=== PATIENT | female | born 1985 ===

== ENCOUNTER 2019-11-18 23:55 | Emergency (ER) | payer SELFPAY ==
[2019-11-19] MEDS ORDERED: SODIUM CHLORIDE 0.9% 1000 ML 1,000 ML ONE (00:22)
[2019-11-19] MEDS ORDERED: SODIUM CHLORIDE 0.9% 1000 ML 1,000 ML IV ONE ×4 (00:25→02:26)
--- NOTE | 2019-11-19 00:35 | Emergency Department Report ---
History of Present Illness - General Chief Complaint: Medical Clearance Stated Complaint: POSS OD Time Seen by Provider: 11/19/19 00:25 Source: patient, EMS Mode of arrival: Stretcher Limitations: Physical Limitation - History of Present Illness Initial Comments: This is a 34-year-old female who presents after potential overdose. For the past 4 days she has been treated for alcohol dependence at [facility]. According to documentation, patient was found with unknown pink powder substance. Patient reported that she took 7 to 8 pills of Benadryl today for anxiety to the staff at [facility] according to documentation. She presumably had anxiety because she did not know where she would reside after being discharged from the facility. Currently she feels sleepy. Patient denies intentional overdose. She denies attempt to harm herself. Patient was brought to the emergency department on 2013 involuntary hold for sev ere alcohol intoxication causing potential harm/trauma to patient with multiple falls. Sitter is at the bedside. MD Complaint: intentional overdose -: This evening Intent: other (According to documentation anxiety regarding living situation) How Overdose Was Discovered: other (Patient is being treated at [facility]) Context: Intentional Overdose: financial issues, drug/ETOH problems, started new med recently Associated Symptoms: depression Treatments Prior to Arrival: none - Related Data Allergies Allergy/AdvReac Type Severity Reaction Status Date / Time divalproex sodium Allergy Unknown Verified 11/19/19 00:17 [From [facility]] ED Review of Systems ROS: Stated complaint: POSS OD Other details as noted in HPI Comment: All other systems reviewed and negative Constitutional: denies: fever, malaise Respiratory: denies: cough, shortness of breath Cardiovascular: denies: palpitations Gastrointestinal: denies: abdominal pain, nausea, vomiting ED Past Medical Hx - Past Medical History Previous Medical History?: No - Surgical History Past Surgical History?: No - Social History Smoking Status: Former Smoker Substance Use Type: Alcohol ED Physical Exam - General Limitations: Physical Limitation General appearance: alert, in no apparent distress - Head Head exam: Present: atraumatic, normocephalic - Eye Eye exam: Present: normal appearance - ENT ENT exam: Present: mucous membranes moist - Neck Neck exam: Present: normal inspection, full ROM - Respiratory Respiratory exam: Present: normal lung sounds bilaterally. Absent: respiratory distress, wheezes, rales, rhonchi - Cardiovascular Cardiovascular Exam: Present: regular rate, normal rhythm, normal heart sounds. Absent: systolic murmur, diastolic murmur, rubs, gallop - GI/Abdominal GI/Abdominal exam: Present: soft, normal bowel sounds. Absent: distended, tenderness, guarding, rebound - Extremities Exam Extremities exam: Present: normal inspection - Neurological Exam Neurological exam: Present: alert, oriented X3 - Psychiatric Psychiatric exam: Present: depressed, flat affect - Skin Skin exam: Present: warm, dry, intact, normal color. Absent: rash ED Course Vital Signs 11/19/19 11/19/19 11/19/19 00:15 00:16 00:30 Temperature 98.1 F Pulse Rate 66 Respiratory 16 Rate Blood Pressure 80/45 71/45 Blood Pressure 75/43 [Left] O2 Sat by Pulse 96 93 100 Oximetry 11/19/19 11/19/19 11/19/19 00:45 01:00 01:15 Temperature Pulse Rate Respiratory Rate Blood Pressure 82/50 85/50 86/51 Blood Pressure [Left] O2 Sat by Pulse 100 100 99 Oximetry 11/19/19 11/19/19 11/19/19 01:28 01:30 01:45 Temperature Pulse Rate 65 Respiratory 17 Rate Blood Pressure 89/50 91/54 Blood Pressure 88/53 [Left] O2 Sat by Pulse 99 99 100 Oximetry 11/19/19 11/19/19 11/19/19 02:00 02:01 02:15 Temperature Pulse Rate 66 Respiratory 17 Rate Blood Pressure 98/60 104/69 Blood Pressure 98/60 [Left] O2 Sat by Pulse 96 97 99 Oximetry 11/19/19 11/19/19 11/19/19 02:31 02:45 03:01 Temperature Pulse Rate Respiratory Rate Blood Pressure 91/62 91/62 91/62 Blood Pressure [Left] O2 Sat by Pulse 100 100 100 Oximetry 11/19/19 11/19/19 11/19/19 03:15 03:31 03:36 Temperature Pulse Rate 66 Respiratory 16 Rate Blood Pressure 91/62 91/62 Blood Pressure 95/61 [Left] O2 Sat by Pulse 99 97 95 Oximetry 11/19/19 11/19/19 11/19/19 03:45 04:00 04:15 Temperature Pulse Rate Respiratory Rate Blood Pressure 95/61 94/61 94/61 Blood Pressure [Left] O2 Sat by Pulse 98 98 100 Oximetry ED Medical Decision Making - Lab Data Result diagrams: 11/19/19 04:09 11/19/19 00:25 Laboratory Results - last 24 hr 11/19/19 11/19/19 11/19/19 00:25 00:25 00:25 WBC RBC Hgb Hct MCV MCH MCHC RDW Plt Count Lymph % (Auto) [place] % (Auto) Eos % (Auto) Baso % (Auto) Lymph # [place]ake # Eos # Baso # Seg Neutrophils % Seg Neutrophils # Sodium 137 Potassium 3.7 Chloride 102.9 Carbon Dioxide 24 Anion Gap 14 BUN 7 Creatinine 0.6 Estimated GFR > 60 BUN/Creatinine Ratio 12 Glucose 110 H Calcium 8.6 HCG, Qual Urine Color Urine Turbidity Urine pH Ur Specific [place] Urine Protein Urine Glucose (UA) Urine Ketones Urine Blood Urine Nitrite Urine Bilirubin Urine Urobilinogen Ur Leukocyte Esterase Urine WBC (Auto) Urine RBC (Auto) U Epithel Cells (Auto) Urine Bacteria (Auto) Urine Mucus Salicylates < 0.3 L Urine Opiates Screen Urine Methadone Screen Acetaminophen 5.0 L Ur Barbiturates Screen Ur Phencyclidine Scrn Ur Amphetamines Screen U Benzodiazepines Scrn Urine Cocaine Screen U Marijuana (THC) Screen Drugs of Abuse Note Plasma/Serum Alcohol 11/19/19 11/19/19 11/19/19 00:25 00:25 00:25 WBC 5.4 RBC 3.15 L Hgb 9.9 L Hct 29.5 L MCV 94 MCH 31 MCHC 34 RDW 17.0 H Plt Count 179 Lymph % (Auto) 42.8 H [place] % (Auto) 8.7 H Eos % (Auto) 4.5 H Baso % (Auto) 1.0 Lymph # 2.3 [place] # 0.5 Eos # 0.2 Baso # 0.1 Seg Neutrophils % 43.0 Seg Neutrophils # 2.3 Sodium Potassium Chloride Carbon Dioxide Anion Gap BUN Creatinine Estimated GFR BUN/Creatinine Ratio Glucose Calcium HCG, Qual Negative Urine Color Urine Turbidity Urine pH Ur Specific [place] Urine Protein Urine Glucose (UA) Urine Ketones Urine Blood Urine Nitrite Urine Bilirubin Urine Urobilinogen Ur Leukocyte Esterase Urine WBC (Auto) Urine RBC (Auto) U Epithel Cells (Auto) Urine Bacteria (Auto) Urine Mucus Salicylates Urine Opiates Screen Urine Methadone Screen Acetaminophen Ur Barbiturates Screen Ur Phencyclidine Scrn Ur Amphetamines Screen U Benzodiazepines Scrn Urine Cocaine Screen U Marijuana (THC) Screen Drugs of Abuse Note Plasma/Serum Alcohol < 0.01 11/19/19 11/19/19 11/19/19 02:31 02:31 04:09 WBC 5.6 RBC 3.19 L Hgb 10.0 L Hct 30.2 L MCV 95 MCH 31 MCHC 33 RDW 17.0 H Plt Count 154 Lymph % (Auto) [place] % (Auto) Eos % (Auto) Baso % (Auto) Lymph # [place] # Eos # Baso # Seg Neutrophils % Seg Neutrophils # Sodium Potassium Chloride Carbon Dioxide Anion Gap BUN Creatinine Estimated GFR BUN/Creatinine Ratio Glucose Calcium HCG, Qual Urine Color Red Urine Turbidity Clear Urine pH 7.0 Ur Specific [place] 1.008 Urine Protein 100 mg/dl Urine Glucose (UA) Neg Urine Ketones Neg Urine Blood Lg Urine Nitrite Neg Urine Bilirubin Neg Urine Urobilinogen < 2.0 Ur Leukocyte Esterase Tr Urine WBC (Auto) 10.0 H Urine RBC (Auto) 7.0 U Epithel Cells (Auto) 13.0 Urine Bacteria (Auto) 2+ Urine Mucus Few Salicylates Urine Opiates Screen Presumptive negative Urine Methadone Screen Presumptive negative Acetaminophen Ur Barbiturates Screen Presumptive negative Ur Phencyclidine Scrn Presumptive negative Ur Amphetamines Screen Presumptive negative U Benzodiazepines Scrn Presumptive negative Urine Cocaine Screen Presumptive negative U Marijuana (THC) Screen Presumptive negative Drugs of Abuse Note Disclamer Plasma/Serum Alcohol - EKG Data -: EKG Interpreted by Me EKG shows normal: sinus rhythm, axis, intervals, ST-T waves Rate: normal - EKG Data 11/19/19 00:49 EKG obtained 0043 EKG interpreted by pr \Normal sinus rhythm rate 70 bpm normal axis normal NH interval, borderline QTC prolongation 478 ms - Medical Decision Making This is a 34-year-old female who presents with likely intentional overdose. Nursing staff at [facility] noticed that patient had pink powdery substance in her possession. She admitted to taking 7-8 Benadryl tablets. Considering hypotension I suspect additional drugs may have been ingested. Patient had persistent normotension after IV fluid therapy resuscitation. She stated that she was sleepy. Otherwise she has been stable after 6 hours observation emergency department. I have placed patient on 1013 involuntary hold using for appropriate documentation. Patient is currently on 2012 for alcohol dependence. She is now medically clear for psychiatric care. Patient will return back to [facility]. CBC chemistry serum toxicology all within normal limits. Repeat CBC reveals stable hemoglobin hematocrit. No leukocytosis to suggest sepsis. Repeat blood pressure 106/74 prior to return back to [facility] Critical Care Time: Yes Critical care time in (mins) excluding proc time.: 40 Critical care attestation.: If time is entered above; I have spent that time in minutes in the direct care of this critically ill patient, excluding procedure time. 40 minutes of critical care time excluding procedures were used in the care of the patient. I reviewed electronic record. I discussed treatment plan with the nursing team members at the bedside. I came immediately to the bedside upon patient's arrival. Of concern for persistent hypotension. I was concerned for multiple coingestants. Patient required multiple interventions and reassessments. ED Disposition Clinical Impression: Intentional drug overdose, Suicide attempt Disposition: [id number] ANOTHER TYPE HLTHCARE Is pt being admited?: No Does the pt Need Aspirin: No Condition: Stable
[2019-11-19 00:46] LABS: Basophils # (Auto) 0.1 K/mm3 (0.0-0.1); Eosinophils # (Auto) 0.2 K/mm3 (0.0-0.4); Eosinophils % (Auto) 4.5 % (0.0-4.3); Hematocrit 29.5 % (30.3-42.9); Hemoglobin 9.9 gm/dl (10.1-14.3); Lymphocytes # (Auto) 2.3 K/mm3 (1.2-5.4); Lymphocytes % (Auto) 42.8 % (13.4-35.0); Mean Corpuscular HGB Conc 34 % (30-34); Mean Corpuscular Volume 94 fl (79-97); Monocytes # (Auto) 0.5 K/mm3 (0.0-0.8); Monocytes % (Auto) 8.7 % (0.0-7.3); Platelet Count 179 K/mm3 (140-440); Red Blood Count 3.15 M/mm3 (3.65-5.03)
[2019-11-19 01:00] LABS: Blood Urea Nitrogen 7 mg/dL (7-17); Calcium 8.6 mg/dL (8.4-10.2); Hemolysis Index 6
[2019-11-19 01:06] LABS: BUN/Creatinine Ratio 12
[2019-11-19 03:15] LABS: Amphetamine Screen,Urine PRESUMPTIVE NEGATIVE; Benzodiazepines Screen,Urine PRESUMPTIVE NEGATIVE; Cannabinoid Screen,Urine PRESUMPTIVE NEGATIVE; Cocaine Screen,Urine PRESUMPTIVE NEGATIVE; Methadone Screen,Urine PRESUMPTIVE NEGATIVE; Opiate Screen,Urine PRESUMPTIVE NEGATIVE
[2019-11-19 03:23] LABS: Bacteria,Urine 2+ /HPF (Negative); Bilirubin,Urine NEG (Negative); Blood,Urine LG (Negative); Color,Urine Red (Yellow); Mucus,Urine FEW /HPF; Urobilinogen,Urine < 2.0 mg/dL (<2.0)
[2019-11-19 04:24] LABS: Hematocrit 30.2 % (30.3-42.9); Mean Corpuscular HGB Conc 33 % (30-34); Mean Corpuscular Volume 95 fl (79-97); Platelet Count 154 K/mm3 (140-440); Red Blood Count 3.19 M/mm3 (3.65-5.03)
[2019-11-19 05:56] VITALS: BP 105/79
== END 2019-11-19 07:01 | disposition other institution (70) ==
LOC: EEVIPCON 23:55 → ED 23:55
DX: T45.0X1A Poisoning by antiallergic and antiemetic drugs, accidental (unintentional), initial encounter (principal); Y92.89 Other specified places as the place of occurrence of the external cause
CPT/HCPCS: 36415; 80048; 80307; 81001; 84703; 85025; 85027; 87086; 93005; 96360; 96361; 99284; J7030; 80320; G0480